=== PATIENT | male | born 1985 | race Caucasian/White ===

== ENCOUNTER 2021-05-25 20:56 | Emergency (ER) | payer MEDICAID ==
--- OUTSIDE RECORDS SUMMARY | 2021-05-25 21:00 | XMS REPORT | Clinical Summary ---
Author Author [facility] [place] Address Unknown Phone Unavailable Care Team Providers Care Wool And Pelt Grader Name Role Phone TomasBeni serranogamal Subramanian DO PP Allergies No known active allergies Medications End Date Status Medication Sig Dispensed Refills Start Date Active ibuprofen (Motrin) 800 mg Take 1 tablet 30 tablet 0 tablet (800 mg 1 total) by mouth every 8 (eight) hours if needed for mild pain (1-3) for up to 30 doses. Active cyclobenzaprine Take 1 tablet 20 tablet 0 01/21/20 2 (FLEXERIL) 10 mg tablet (10 mg total) 1 by mouth 2 (two) times per day if needed for muscle spasms for up to 20 doses. Active Problems Not on file Social History Date Tobacco Use Types Packs/Day Years Used Current Every Day Smoker Smokeless Tobacco: Never Used Comments: vaape Comments Alcohol Use Standard Drinks/Week Never 0 (1 standard drink = 0.6 o z pure alcohol) Alcohol Habits Answer Date Recorded How often do you have a drink containing alcohol? Never 01/07/2021 How many drinks containing alcohol do you have on No t asked a typical day when you are drinking? How often do you have six or more drinks on one Not asked occasion? Comment: Not asked Sex Assigned at Date Recorded Not on file Industry Job Start Date Occupation Not on file Not on file Not on file Last Filed Vital Signs Reading Time Taken Comments Vital Sign 114/68 01/20/2021 1:49 AM CDT Blood Pressure 70 01/20/2021 1:49 AM CDT Pulse 38.9 C (102 F) 01/20/2021 1:00 AM CDT Temperature 18 01/20/2021 1:49 AM CDT Respiratory Rate 98% 01/20/2021 2:44 AM CDT Oxygen Saturation - - Inhaled Oxygen Concentration 70.3 kg (155 lb) 01/20/2021 1:00 AM CDT Weight 177.8 cm (5' 10") 01/20/2021 1:00 AM CDT Height 22.24 01/20/2021 1:00 AM CDT Body Mass Index Plan of Treatment Health Maintenance Due Date Last Done Comments Lipid Panel 1986 MMR Vaccines (1 of 1 - 11/04/1987 Standard series) Varicella Vaccines (1 of 11/04/1987 2 - 2-dose childhood series) Pneumococcal (1 of 2 - 1992 PPSV23) COVID-19 Vaccine (1) 1998 Depression Screening 1998 DTaP,Tdap,and Td Vaccines 2005 (1 - Tdap) Influenza Vaccine (#1) 2021 HIB Vaccines Aged Out No longer eligible based on patient's age to complete this topic HPV Vaccines Aged Out No longer eligible based on patient's age to complete this topic Hepatitis A Vaccines Aged Out No longer eligibl e based on patient's age to complete this topic Hepatitis B Vaccines Aged Out No longer eligibl e based on patient's age to complete this topic IPV Vaccines Aged Out No longer eligible based on patient's age to complete this topic Meningococcal Vaccine Aged Out No longer eligib le based on patient's age to complete this topic Results Not on filefrom Last 3 Months Insurance Type Payer Benefit Subscriber ID Effective Phone Address Plan / Dates Group MEDICAID OUT OF [facility] [id number] 2021- [address] MEDICAID Present [id number] [place] [address] Advance Directives Patient Apartment Assistant Manager Explanation Type Date Recorded Advance Directives and Living Will Power of Hot Plate Plywood Press Operator Care Teams Start Date End Date Wool And Pelt Grader Relationship Specialty 01/07/21 Jos Cassidy, PCP - General Family [id number] [place] [place] [address]
[2021-05-25] MEDS ORDERED: RT-ALBUTEROL/IPRATROPIUM 3 ML (DUONEB) VIAL INH ONE (21:15)
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
--- NOTE | 2021-05-25 22:38 | Diagnostic Imaging Report ---
INDICATION: Wheezing. FINDINGS: There is some mild air trapping present. No airway thickening or peribronchial cuffing. The lungs are clear. No failure, effusion or pneumothorax. IMPRESSION: Clear mildly hyperexpanded lungs, otherwise negative. Dictated by: Dictated on workstation # [id number]
--- NOTE | 2021-05-25 22:48 | Diagnostic Imaging Report ---
PROCEDURE: CT head and CT cervical spine without contrast. TECHNIQUE: Multiple contiguous axial images were obtained through the brain and cervical spine without the use of intravenous contrast. Sagittal and coronal reformations through the cervical spine were then performed. Auto Exposure Controls were utilized during the CT exam to meet ALARA standards for radiation dose reduction. INDICATION: Head injury. FINDINGS: CT HEAD: There is no intracranial hemorrhage. There are no abnormal extra-axial fluid collections. There is no calvarial fracture deformity. No hemosinus. No pneumocephalus. There is no edema or evidence for elevated intracranial pressures. The ventricular system is nondilated and nondisplaced. No sulcal effacement. Head CT was normal. CT CERVICAL SPINE: Neck is held in flexion. There is no facet joint dislocation or traumatic listhesis. No cervical fracture or paraspinal hemorrhage. No airway embarrassment. IMPRESSION: No acute abnormality at CT head and cervical spine. Dictated by: Dictated on workstation # [id number]
[2021-05-25 22:53] VITALS: BP 111/74
== END 2021-05-25 22:53 | disposition home or self-care (01) ==
LOC: EDUNIT# 20:56 → ER 20:57
DX: S06.0X9A Concussion with loss of consciousness of unspecified duration, initial encounter (principal); J45.909 Unspecified asthma, uncomplicated; F17.210 Nicotine dependence, cigarettes, uncomplicated; Y04.2XXA Assault by strike against or bumped into by another person, initial encounter
CPT/HCPCS: 70450; 71045; 72125; 94640